=== PATIENT | male | born 1975 | race Caucasian/White ===

== ENCOUNTER 2021-12-10 16:33 | Emergency (ER) | payer SELFPAY ==
[2021-12-10] MEDS ORDERED: DOXYCYCLINE HY100 M2 PO (17:46)
[2021-12-10] MEDS ORDERED: BACTRIM DS TAB1 EACH PO (17:46)
== END 2021-12-10 18:10 | disposition home or self-care (01) ==
LOC: ER1 16:33
DX: L03.213 Periorbital cellulitis (principal)
CPT/HCPCS: 99282